=== PATIENT | female | born 1945 | race Caucasian/White ===

== ENCOUNTER → 2018-12-27 | Outpatient (CLI) | payer MEDICARE, BC | LOC: MC.RAD 08:24 | DX: Z12.31 Encounter for screening mammogram for malignant neoplasm of breast (principal) ==

== ENCOUNTER 2020-07-22 19:44 | Emergency (ER) | payer MEDICARE, BC ==
[2020-07-22 19:52] VITALS: TEMP 97.6
[2020-07-22] MEDS ORDERED: CEPHALEXIN500 M1 PO (20:18)
[2020-07-22 20:40] VITALS: BP 124/70; PULSE 64
== END 2020-07-22 20:40 | disposition home or self-care (01) ==
LOC: COL.ER 19:44
DX: L02.511 Cutaneous abscess of right hand (principal); L03.011 Cellulitis of right finger; I10 Essential (primary) hypertension

== ENCOUNTER 2021-01-27 13:44 | Emergency (ER) | payer MEDICARE, BC ==
[~2021-01-27] VITALS: Ht 172.7 cm; Wt 81.8 kg
[~2021-01-27 13:44] MED LIST: CEPHALEXIN500 M1 PO
[2021-01-27 14:04] VITALS: BP 166/81; PULSE 69; TEMP 97.8
[2021-01-27] MEDS ORDERED: SYNTHROID0.075 MG/T (14:33)
[2021-01-27] MEDS ORDERED: PROZAC 20MG20 MG (14:33)
== END 2021-01-27 15:28 | disposition home or self-care (01) ==
LOC: COL.ER 13:44
DX: S01.01XA Laceration without foreign body of scalp, initial encounter (principal); F03.90 Unspecified dementia, unspecified severity, without behavioral disturbance, psychotic disturbance, mood disturbance, and anxiety; F41.9 Anxiety disorder, unspecified; F32.A Depression, unspecified; E07.9 Disorder of thyroid, unspecified; Z79.890 Hormone replacement therapy; Z79.899 Other long term (current) drug therapy; W01.198A Fall on same level from slipping, tripping and stumbling with subsequent striking against other object, initial encounter

== ENCOUNTER → 2021-02-01 | Outpatient (CLI) | payer MEDICARE, BC ==
[~2021-02-01] MED LIST changes: +PROZAC 20MG20 MG; +SYNTHROID0.075 MG/T
[2021-02-01 13:02] VITALS: BP 156/80; PULSE 56
== END ==
LOC: COL.ER 11:39
DX: Z48.02 Encounter for removal of sutures (principal)